=== PATIENT | female | born 1970 | race Two or more races ===

== ENCOUNTER 2023-07-22 19:59 | Emergency (ER) | payer OTHER ==
[~2023-07-22] VITALS: Ht 170.2 cm; Wt 75.7 kg
[2023-07-22 21:42] LABS: HEMATOCRIT 42.1 % (36.0-45.00); HEMOGLOBIN 14.3 g/dL (12.0-15.00); MEAN CELL VOLUME 93.2 fL (80.00-100.00); MEAN CORPUSCULAR HEMOGLOBIN 31.5 pg (27.00-32.0); MEAN CORPUSCULAR HGB CONC 33.9 g/dl (32.0-36.0); PLATELET COUNT 278 K/uL (150-450); RED BLOOD COUNT 4.52 M/uL (4.00-6.00); RED CELL DISTRIBUTION WIDTH 13.7 % (11.5-14.5)
[2023-07-22 22:14] LABS: ALBUMIN 3.2 gm/dL (3.4-5.0); BILIRUBIN TOTAL 0.4 mg/dL (0.3-1.2); CREATININE SERUM 1.06 mg/dL (0.55-1.02); GFR 54.02; GLOBULINA 4.3 G/DL (2.4-3.5); POTASSIUM 3.59 mEq/L (3.5-5.1); TOTAL PROTEIN 7.5 gm/dL (6.4-8.2)
== END 2023-07-22 22:48 | disposition home or self-care (01) ==
LOC: ER 19:59
PROVIDERS: General Practice
DX: R55 Syncope and collapse (principal)